=== PATIENT | male | born 1945 | race Caucasian/White ===

== ENCOUNTER 2019-04-01 07:37 | Day surgery (SDC) | payer MEDICARE, OTHER ==
[2019-03-30 12:23] LABS: HEMATOCRIT 35.5 % (42.0-54.0); HEMOGLOBIN 12.3 g/dL (13.5-17.5); MCH 31.9 pg (26.0-34.0); MCHC 34.6 g/dL (31.0-37.0); MEAN PLATELET VOLUME 9.7 fL (7.4-10.4); RBC 3.86 10x6/uL (4.20-6.10); RDW 14.1 % (11.5-14.5); WBC 7.8 10x3/uL (4.8-10.8)
[2019-03-30 12:29] LABS: ANION GAP 11.9 mmol/L (8-16); CALCIUM 9.4 mg/dL (8.5-10.1); CREATININE - SERUM 1.1 mg/dL (0.6-1.3); POTASSIUM - SERUM 3.9 mmol/L (3.5-5.1)
[~2019-04-01 07:37] MED LIST: ALTACE10 MG PO; ASPIRIN EC81 M1 PO; CALCIUM PO; HYTRIN1 MG PO; INDERAL LA80 MG PO; LIPITOR40 MG PO; MAGNESIUM OXID250 MG PO; MAXZIDE 75/501 TAB PO; OMEGA-3100 MG PO; PROTONIX40 MG PO; SINGULAIR10 MG PO; VITAMIN B-121000 MCG PO; VITAMIN D31000 UNIT PO
[2019-04-01 08:31] VITALS: BP 131/62; BMI 29.6
--- NOTE | 2019-04-01 11:06 | NUR ---
FRANKO FRAME USED FOR POSITIONING
--- NOTE | 2019-05-10 10:24 | OP ---
PATIENT NAME: Sherry RAYA JR MEDICAL RECORD: [id number] :45 LOCATION:[facility] ADMISSION DATE: SURGEON: ERIC ERVIN MD DATE OF OPERATION: 04/01/2019 PREOPERATIVE DIAGNOSES: Lumbar spinal stenosis with disc protrusion left L3-L4 and L4-L5. PROCEDURES: Lumbar laminotomy, medial facetectomy and foraminotomy L3-L4 and L4-L5 on the left with METRx retractor. SURGEON: Eric Ervin MD DESCRIPTION AND TECHNIQUE: After induction of general endotracheal anesthesia, the patient was rolled prone on the Martínez frame. The lumbar spine was prepped and draped in usual sterile fashion. Fluoroscopic x-ray and spinal needle localized the L3-L4 interspace on the left side. A stab incision was created with a #11 blade and series of dilators was used to advance a METRx retractor at the L3-L4 interspace on the left side. The level was confirmed with fluoroscopic x-ray. A microscope and Midas Andrew drill were used to perform a laminotomy, medial facetectomy, and foraminotomy at L3-L4 on the left. Hypertrophied ligamentum flavum was removed with Cloward rongeurs. Following this, the L3 and L4 nerve roots were decompressed well. Next, the retractor was tilted to the L4-L5 level. A Midas Andrew drill and microscope were used to perform a laminotomy, medial facetectomy, and foraminotomy at L4-L5 on the left. Hypertrophied ligamentum flavum was removed with Cloward rongeurs. This decompressed the L5 nerve root as well as the distal portion of the L4 nerve root. Disc space was inspected at both levels and found to be adequately decompressed. Meticulous hemostasis was maintained throughout the wound. The wound was irrigated with copious amounts of Ancef irrigant solution. The retractor was removed. The fascia was closed with 2-0 Vicryl suture, the subdermal layer was closed with 3-0 Vicryl suture, the skin was closed with jose c. A sterile dressing was applied to the wound. The patient was awakened in good condition and taken to recovery. All counts were reported as correct. Estimated blood loss was minimal. TRANSINT:[id number] Voice Confirmation ID: [id number] DOCUMENT ID: [id number] ERIC ERVIN MD at 1024 CC: [id number] DICTATION DATE: 05/07/19 1011 INTERNIST: 05/07/19 1111 [facility] 04/01/19 [id number] [place] [id number]
== END 2019-04-01 15:50 | disposition home or self-care (01) ==
LOC: D.OPS 07:37
PROVIDERS: Anesthesiology; ATTEND Neurological Surgery
DX: M48.061 Spinal stenosis, lumbar region without neurogenic claudication (principal); M51.26 Other intervertebral disc displacement, lumbar region